=== PATIENT | male | born 1995 | race Caucasian/White ===

== ENCOUNTER 2017-07-19 08:38 | Day surgery (SDC) | payer BC, OTHER ==
[~2017-07-19 08:38] MED LIST: Acetaminophen 500 MG Tab PO ONE; Bupivacaine 0.5% 50 ML MDV ONE; Dextrose 5%-Lactated Ringers 1,000 ML IV SCH; Lidocaine 1% with EPINEPHrine 1:100,000 50 ML MDV ONE; Midazolam 1 MG/ML 2 ML SDV ONE; Propofol 200 MG/20 ML SDV ONE; ceFAZolin 2 GM in Premix Bag 1 BAG IV ONE; fentaNYL 100 MCG/2 ML SDV ONE
[2017-07-19] MEDS ORDERED: Dextrose 5%-Lactated Ringers 1,000 ML IV SCH (09:00)
[2017-07-19] MEDS ORDERED: Acetaminophen 500 MG Tab PO ONE (09:00)
[2017-07-19] MEDS ORDERED: ceFAZolin 2 GM in Premix Bag 1 BAG IV ONE (09:00)
[2017-07-19] MEDS ORDERED: Propofol 200 MG/20 ML SDV ONE (10:21)
[2017-07-19] MEDS ORDERED: Midazolam 1 MG/ML 2 ML SDV ONE (10:22)
[2017-07-19] MEDS ORDERED: fentaNYL 100 MCG/2 ML SDV ONE (10:22)
[2017-07-19] MEDS ORDERED: Lidocaine 1% with EPINEPHrine 1:100,000 50 ML MDV ONE (10:29)
[2017-07-19] MEDS ORDERED: Bupivacaine 0.5% 50 ML MDV ONE (10:29)
[2017-07-19] MEDS ORDERED: fentaNYL 250 MCG/5 ML SDV ONE (10:34)
[2017-07-19] MEDS ORDERED: Ondansetron 4 MG/2 ML SDV ONE (10:35)
[2017-07-19] MEDS ORDERED: Dexamethasone 4 MG/ML SDV ONE (10:35)
[2017-07-19] MEDS ORDERED: Neostigmine Methylsulfate 1 MG/ML 5 ML Syringe ONE (10:35)
[2017-07-19] MEDS ORDERED: Glycopyrrolate 0.2 MG/ML 5 ML MDV ONE (10:35)
[2017-07-19] MEDS ORDERED: Rocuronium 50 MG/5 ML Vial ONE (10:35)
[2017-07-19 13:01] VITALS: BP 113/78
--- NOTE | 2017-07-23 08:40 | OR ---
DATE OF PROCEDURE: 07/19/2017 PREOPERATIVE DIAGNOSIS: Large lipoma of right shoulder area POSTOPERATIVE DIAGNOSIS: Partially submuscular lipoma of right shoulder. OPERATIVE PROCEDURE: Excision of a partially subfascial and submuscular lipoma of right shoulder ([id number]). ANESTHESIA: General. INDICATION FOR PROCEDURE: This is a 21-year-old presenting with a large lipoma over the right shoulder. This is located in the upper shoulder slightly posteriorly, and the plan is to proceed with excision of this. Potential risks including bleeding, infection, recurrence of the problem, problems with a seroma formation or the wound coming open were all reviewed, and the patient wishes to proceed. DETAILS OF PROCEDURE: The patient was taken to the operating room, and general endotracheal anesthesia was induced. He was placed in a left lateral decubitus position, and the right shoulder and surrounding areas were prepped and draped. A transversely oriented incision was then made over the area of the lipoma and taken down through the skin and subcutaneous tissue. The surface of the lipoma was then encountered, and then this was dissected down. This was noted to have a component which extended underneath the leaves of the deltoid muscle, including the adjacent fascia. These were all dissected free, and the lipoma appeared to be removed intact. The lipoma itself was measured at 9 cm upon its removal. The incision was then closed with 2 layers of 3-0 Vicryl stitch deep and then nila for the skin. Dressing was applied. The patient was taken to the recovery room in satisfactory condition. Fawad Santana MD /[id number]
== END 2017-07-19 13:18 | disposition home or self-care (01) ==
LOC: JP.SDS 08:38
PROVIDERS: ATTEND Surgery
DX: D17.21 Benign lipomatous neoplasm of skin and subcutaneous tissue of right arm (principal)
CPT/HCPCS: 23073; 36415; 80048; 85027; 88304; A9270; J0690; J1100; J2405; J2704; J2710; J3010; J7042; J2250